=== PATIENT | female | born 1985 | race Caucasian/White ===

== ENCOUNTER 2018-10-24 09:23 | Day surgery (SDC) | payer BC, MEDICAID ==
[2018-10-22 15:46] LABS: Basophils # (auto) 0.1 uL; Eosinophils # (auto) 0.1 uL; Hemoglobin 14.5 g/dL (12.2-16.2); Lymphocytes # (auto) 1.6 uL; Monocytes # (auto) 0.5 uL; Neutrophils # (auto) 4.6 uL; White Blood Cell 6.8 10^3/uL (4.4-10.8)
[2018-10-22 15:48] LABS: Basophils % (auto) 1.1 % (0.0-2.0); Eosinophils % (auto) 1.4 % (0.0-7.0); Hematocrit 43.2 % (36.0-46.0); Lymphocytes % (auto) 23.1 % (10.0-50.0); Mean Corpuscular Hemoglobin 33.5 pg (28.0-32.0); Mean Corpuscular Hgb Conc. 33.5 g/dL (32.0-36.0); Monocytes % (auto) 7.3 % (0.0-12.0); Neutrophils % (auto) 67.1 % (37.0-80.0); Nucleated Red Blood Cells % 0.1 %; Platelet Count (auto) 303 10^3/uL (140-450); Red Blood Cells 4.31 10^6/uL (4.0-5.20); Red Cell Distribution Width 12.6 % (11.8-14.3)
[2018-10-22 15:59] LABS: INR 0.97 (0.9-1.15); Partial Thromboplastin Time 26.5 sec (23.64-32.05)
[2018-10-22 16:03] LABS: Albumin 3.9 g/dL (3.4-5.0); Potassium 4.2 mmol/L (3.5-5.1)
[2018-10-22 16:06] LABS: BUN/Creatinine Ratio 20.6; Bilirubin, Total 0.3 mg/dL (0.2-1.0); Total Protein 7.3 g/dL (6.4-8.2)
[2018-10-22 17:12] LABS: Urine Bacteria NONE SEEN /hpf (None Seen); Urine Blood Negative /uL (Negative); Urine Mucus FEW (None Seen); Urine Specific Gravity 1.025 (1.001-1.035); Urine WBC 5 /hpf (0 - 5)
[~2018-10-24] VITALS: Ht 162.6 cm; Wt 51.3 kg
[~2018-10-24 09:23] MED LIST: CEPH250C PO; FEXO-42 PO; TRAM50TA2 PO
[2018-10-24] MEDS ORDERED: ceFAZolin 1GM/50ML 50 ML IV ONE (10:16)
[2018-10-24] MEDS ORDERED: fentaNYL CITRATE 100 MCG/2 ML VL ONE (12:38)
[2018-10-24] MEDS ORDERED: SODIUM CHLORIDE LOCK 10 ML ONE (12:38)
[2018-10-24] MEDS ORDERED: MIDAZOLAM HCL 1MG/1ML-2 ML VIAL ONE (12:38)
[2018-10-24] MEDS ORDERED: ONDANSETRON HCL 4 MG/2 ML VIAL ONE (12:38)
[2018-10-24] MEDS ORDERED: PROPOFOL 10 MG/ML 20 ML IV ONE (12:38)
[2018-10-24] MEDS ORDERED: NEOMYCIN-BACITRACIN-POLYM 15GM TOP OINT TOP ONE (12:49)
[2018-10-24] MEDS ORDERED: ROPIVACAINE 0.5% (5MG/ML) 20ML AMPULE IJ ONE (12:49)
[2018-10-24] MEDS ORDERED: MEPERIDINE HCL (25 MG/ML) 1ML VIAL ONE (13:03)
[2018-10-24] MEDS ORDERED: METOCLOPRAMIDE HCL 5MG/ml INJ 2ml VIAL IV ONE (13:30)
[2018-10-24] MEDS ORDERED: FAMOTIDINE (10MG/ML) 2ML VL IV ONE (13:42)
[2018-10-24] MEDS ORDERED: ceFAZolin 1GM VL ONE (14:20)
[2018-10-24] MEDS ORDERED: KETOROLAC TROMETH 60MG/2ML VIAL ONE (14:33)
[2018-10-24] MEDS: HYDROmorphone HCL 2 MG/ML VL IV PRN ×4 (15:10→15:42)
[2018-10-24 15:59] VITALS: BP 128/85
== END 2018-10-24 16:50 | disposition home or self-care (01) ==
LOC: SUR 09:23
PROVIDERS: ATTEND Podiatrist Foot & Ankle Surgery
DX: S82.832A Other fracture of upper and lower end of left fibula, initial encounter for closed fracture (principal); J45.909 Unspecified asthma, uncomplicated; F17.210 Nicotine dependence, cigarettes, uncomplicated; Z79.899 Other long term (current) drug therapy; Z98.51 Tubal ligation status; X58.XXXA Exposure to other specified factors, initial encounter; Y93.89 Activity, other specified; Y92.89 Other specified places as the place of occurrence of the external cause; Y99.8 Other external cause status
CPT/HCPCS: 27792; 36415; 73600; 80053; 81001; 84702; 85025; 85610; 85730; C1713; J0690; J1170; J1885; J2175; J2250; J2405; J2704; J2795; J3010; J3490; Q4138